=== PATIENT | male | born 1975 | race Caucasian/White ===

== ENCOUNTER → 2016-09-30 | Outpatient (CLI) | payer BC | LOC: MW.RT 20:34 | CPT/HCPCS: 95810 ==

== ENCOUNTER → 2016-11-23 | Outpatient (CLI) | payer BC | END | disposition home or self-care (01) | LOC: MW.CHRC 08:20 | PROVIDERS: ATTEND Family Medicine | DX: E03.9 Hypothyroidism, unspecified (principal) | CPT/HCPCS: 36415; 84439; 84443 ==